=== PATIENT | male | born 1990 | race Hispanic/Latino ===

== ENCOUNTER → 2017-11-08 | Outpatient (CLI) | payer MEDICARE | END | disposition home or self-care (01) | LOC: RAH 08:44 | PROVIDERS: ATTEND Psychiatry & Neurology Neurology | DX: R56.9 Unspecified convulsions (principal); Q04.6 Congenital cerebral cysts | CPT/HCPCS: 70551 ==

== ENCOUNTER 2017-12-22 21:05 | Emergency (ER) | payer MEDICARE ==
[2017-12-22] MEDS ORDERED: TETRACAINE HCL 0.5% 4 ML OPHTH SOLN ONE (22:35)
== END 2017-12-22 22:38 | disposition home or self-care (01) ==
LOC: EDH 21:05
DX: S05.02XA Injury of conjunctiva and corneal abrasion without foreign body, left eye, initial encounter (principal); Z72.0 Tobacco use; X58.XXXA Exposure to other specified factors, initial encounter; Y93.89 Activity, other specified; Y92.89 Other specified places as the place of occurrence of the external cause; Y99.8 Other external cause status

== ENCOUNTER 2018-08-24 21:34 | Emergency (ER) | payer MEDICARE | END 2018-08-24 22:25 | disposition home or self-care (01) | LOC: EDH 21:34 | DX: H66.91 Otitis media, unspecified, right ear (principal) ==

== ENCOUNTER 2018-09-04 10:27 | Emergency (ER) | payer MEDICARE ==
[2018-09-04] MEDS ORDERED: ACETAMINOPHEN EXTRA STRENGTH 500 MG TABLET ONE (10:59)
[2018-09-04] MEDS ORDERED: LIDOCAINE HCL-MPF 1% 2ML VIAL ONE (11:30)
[2018-09-04] MEDS ORDERED: AZITHROMYCIN 250 MG TABLET PO ONE (11:31)
[2018-09-04] MEDS ORDERED: CEFTRIAXONE SODIUM 1 GM ONE (11:31)
== END 2018-09-04 11:51 | disposition home or self-care (01) ==
LOC: EDH 10:27
DX: J18.8 Other pneumonia, unspecified organism (principal); R03.0 Elevated blood-pressure reading, without diagnosis of hypertension; Z72.0 Tobacco use
CPT/HCPCS: 71046; 96372; 99283; J0696; J3490

== ENCOUNTER 2019-01-03 20:52 | Emergency (ER) | payer MEDICARE ==
[2019-01-03] MEDS ORDERED: SULFAMETHOX-TMP DS 800/160 TAB ONE (21:24)
[2019-01-03] MEDS ORDERED: CEPHALEXIN 500 MG CAPSULE ONE (21:24)
== END 2019-01-03 21:47 | disposition home or self-care (01) ==
LOC: EDH 20:52
DX: L02.214 Cutaneous abscess of groin (principal); Z72.0 Tobacco use

== ENCOUNTER 2019-02-09 16:27 | Emergency (ER) | payer MEDICARE | END 2019-02-09 18:09 | disposition home or self-care (01) | LOC: EDH 16:27 | DX: J06.9 Acute upper respiratory infection, unspecified (principal); R05 Cough | CPT/HCPCS: 87804 ==

== ENCOUNTER 2019-11-26 17:06 | Emergency (ER) | payer MEDICARE ==
[2019-11-26 18:02] LABS: RAPID GROUP A STREP POSITIVE (NEGATIVE)
== END 2019-11-26 18:25 | disposition home or self-care (01) ==
LOC: EDH 17:06
DX: J02.0 Streptococcal pharyngitis (principal); R50.81 Fever presenting with conditions classified elsewhere; R03.0 Elevated blood-pressure reading, without diagnosis of hypertension; Z72.0 Tobacco use
CPT/HCPCS: 87804; 87880

== ENCOUNTER 2020-07-21 10:46 | Emergency (ER) | payer MEDICARE | END 2020-07-21 11:37 | disposition home or self-care (01) | LOC: EDH 10:46 | DX: S81.032A Puncture wound without foreign body, left knee, initial encounter (principal); X58.XXXA Exposure to other specified factors, initial encounter; Y93.89 Activity, other specified; Y92.89 Other specified places as the place of occurrence of the external cause; Y99.8 Other external cause status | CPT/HCPCS: 99281 ==

== ENCOUNTER 2023-07-06 20:36 | Emergency (ER) | payer MEDICARE ==
[~2023-07-06] VITALS: Ht 188 cm; Wt 122.0 kg
[~2023-07-06 20:36] MED LIST: CYCL5TAB PO; IBUP-2070 PO
[2023-07-06 21:59] VITALS: BP 132/62; PULSE 74; RESP 18; O2SAT 98
[2023-07-06] MEDS ORDERED: TETANUS/DIPHTHERIA TOXOID [ADULT] 0.5 ML VIAL IM ONE (22:19)
[2023-07-06] MEDS ORDERED: LEVOFLOXACIN 500 MG TABLET ONE (22:22)
[2023-07-06] MEDS ORDERED: LEVOFLOXACIN 500 MG TABLET PO ONE (22:30)
[2023-07-06] MEDS ORDERED: DIPH,PERTUSS(ACELL),TET VAC/PF 0.5 ML VIAL IM ONE (22:30)
[2023-07-06] MEDS ORDERED: MUPI22OI2 TP (22:38)
[2023-07-06] MEDS ORDERED: FLUC200T PO (22:38)
[2023-07-06] MEDS ORDERED: LEVO750T68 PO (22:38)
[2023-07-06] MEDS ORDERED: MICO71PO11 TP (22:38)
== END 2023-07-06 22:55 | disposition home or self-care (01) ==
LOC: EDH 20:36
DX: S91.332A Puncture wound without foreign body, left foot, initial encounter (principal); I10 Essential (primary) hypertension; Z79.899 Other long term (current) drug therapy; X58.XXXA Exposure to other specified factors, initial encounter; Y93.89 Activity, other specified; Y92.89 Other specified places as the place of occurrence of the external cause; Y99.8 Other external cause status
CPT/HCPCS: 73620; 82948; 90471; 90714